=== PATIENT | female | born 1940 | race Caucasian/White ===

== ENCOUNTER → 2016-10-17 | Outpatient (CLI) | payer MEDICARE | END | disposition home or self-care (01) | LOC: PETCFH 09:10 | PROVIDERS: ATTEND Internal Medicine Gastroenterology | DX: K57.32 Diverticulitis of large intestine without perforation or abscess without bleeding (principal); I10 Essential (primary) hypertension; E78.00 Pure hypercholesterolemia, unspecified; E89.41 Symptomatic postprocedural ovarian failure; R52 Pain, unspecified; Z86.010 Personal history of colon polyps; Z68.29 Body mass index [BMI] 29.0-29.9, adult | CPT/HCPCS: 78264; A9541 ==

== ENCOUNTER 2020-02-05 12:34 | Outpatient (CLI) | payer MEDICARE ==
[2020-02-05] MEDS ORDERED: GINKGO BILOBA PO (13:15)
[2020-02-05] MEDS ORDERED: IPRA15SP NS (13:15)
[2020-02-05] MEDS ORDERED: PANT40TA5 PO (13:15)
[2020-02-05] MEDS ORDERED: LOSA100T14 PO (13:15)
[2020-02-05] MEDS ORDERED: [UNRECOGNIZED DRUG - OTHER] PO (13:15)
[2020-02-05] MEDS ORDERED: MULT-658 PO (13:15)
[2020-02-05] MEDS ORDERED: biotin PO (13:15)
[2020-02-05] MEDS ORDERED: co Q10 PO (13:15)
[2020-02-05] MEDS ORDERED: ESTR2TAB PO (13:15)
[2020-02-05] MEDS ORDERED: ATOR40TA78 PO (13:15)
[2020-02-05] MEDS ORDERED: CYAN1TAB29 PO (13:15)
[2020-02-05 13:56] LABS: ALANINE AMINOTRANSFERASE 32 U/L (12-78); ALBUMIN 3.9 g/dL (3.4-5.0); ANION GAP 5 mmol/L (5-15); CALCIUM 9.8 mg/dL (8.5-10.1); CHLORIDE 107 mmol/L (98-107)
[2020-02-05 13:58] LABS: ALKALINE PHOSPHATASE 102 U/L (45-117); BILIRUBIN,TOTAL 0.8 mg/dL (0.2-1.0); TOTAL PROTEIN 7.5 g/dL (6.4-8.2)
== END 2020-02-05 23:59 | disposition home or self-care (01) ==
LOC: STAR 12:34
PROVIDERS: ATTEND Orthopaedic Surgery
DX: Z01.818 Encounter for other preprocedural examination (principal); S46.011A Strain of muscle(s) and tendon(s) of the rotator cuff of right shoulder, initial encounter; X58.XXXA Exposure to other specified factors, initial encounter; Y93.89 Activity, other specified; Y92.89 Other specified places as the place of occurrence of the external cause; Y99.8 Other external cause status
CPT/HCPCS: 36415; 80053; 93005

== ENCOUNTER 2020-02-07 09:29 | Outpatient (CLI) | payer MEDICARE ==
[~2020-02-07 09:29] MED LIST: ATOR40TA78 PO; CYAN1TAB29 PO; ESTR2TAB PO; GINKGO BILOBA PO; IPRA15SP NS; LOSA100T14 PO; MULT-658 PO; PANT40TA5 PO; [UNRECOGNIZED DRUG - OTHER] PO; biotin PO; co Q10 PO
== END 2020-02-07 23:59 | disposition home or self-care (01) ==
LOC: STAR 09:29
PROVIDERS: ATTEND Anesthesiology
DX: Z01.818 Encounter for other preprocedural examination (principal); Z11.59 Encounter for screening for other viral diseases
CPT/HCPCS: 36415; 87635

== ENCOUNTER 2020-02-12 07:47 | Day surgery (SDC) | payer MEDICARE ==
[~2020-02-12] VITALS: Ht 167.6 cm; Wt 71.5 kg
[~2020-02-12 07:47] MED LIST changes: +BUPIVACAINE/PF 0.25% ONE; +EPINEPHRINE 1 MG/ML, 1ML ONE; +FENTANYL PF 100 MCG/2ML ONE; +LIDOCAINE/PF 1%-EPI 1:200K, 30 ML ONE
[2020-02-12] MEDS ORDERED: CHLORHEXIDINE 15 ML UDC MM STA (08:10)
[2020-02-12] MEDS ORDERED: LACTATED RINGERS 1,000 ML IV SCH (08:10)
[2020-02-12] MEDS ORDERED: ACETAMINOPHEN 500 MG TABLET ONE (08:21)
[2020-02-12] MEDS ORDERED: ACETAMINOPHEN 500 MG TABLET PO STA (08:21)
[2020-02-12 08:42] VITALS: BP 175/86
[2020-02-12] MEDS ORDERED: NEOSTIGMINE 1 MG/ML, 10ML ONE (10:19)
[2020-02-12] MEDS ORDERED: DEXAMETHASONE 4 MG/ML, 1ML ONE (10:19)
[2020-02-12] MEDS ORDERED: ONDANSETRON 2MG/ML, 2ML ONE (10:19)
[2020-02-12] MEDS ORDERED: PROPOFOL 10 MG/ML, 20ML ONE (10:19)
[2020-02-12] MEDS ORDERED: ROCURONIUM 10MG/ML,5ML ONE (10:19)
[2020-02-12] MEDS ORDERED: GLYCOPYRROLATE 0.2MG/1ML, 5ML ONE (10:19)
[2020-02-12] MEDS ORDERED: SUCCINYLCHOLINE 20 MG/ML, 10ML ONE (10:19)
[2020-02-12] MEDS ORDERED: CEFAZOLIN 1,000 MG ONE (10:19)
[2020-02-12] MEDS ORDERED: ONDANSETRON 2MG/ML, 2ML IVPush PRN (10:30)
[2020-02-12] MEDS ORDERED: PROMETHAZINE 25 MG/ML, 1ML IVPush PRN (10:30)
[2020-02-12] MEDS ORDERED: OXYcodone 5 MG/5 ML ORAL.SOL UDC PO PRN (10:30)
[2020-02-12] MEDS ORDERED: HYDROmorphone 1 MG/ML, 1ML INJ IVPush PRN (10:30)
[2020-02-12] MEDS ORDERED: hydrALAzine 20 MG/ML, 1ML IV PRN (10:30)
[2020-02-12] MEDS ORDERED: FENTANYL PF 100 MCG/2ML IV PRN (10:30)
[2020-02-12] MEDS ORDERED: PROMETHAZINE 25 MG SUPP PR PRN (10:30)
[2020-02-12] MEDS ORDERED: LABETALOL 5MG/ML, 20ML IV PRN (10:30)
[2020-02-12] MEDS ORDERED: hydrALAzine 20 MG/ML, 1ML ONE (11:26)
== END 2020-02-12 13:10 | disposition home or self-care (01) ==
LOC: OUT 07:47
PROVIDERS: ATTEND Orthopaedic Surgery
DX: S46.011A Strain of muscle(s) and tendon(s) of the rotator cuff of right shoulder, initial encounter (principal); G89.18 Other acute postprocedural pain; S46.111A Strain of muscle, fascia and tendon of long head of biceps, right arm, initial encounter; S43.431A Superior glenoid labrum lesion of right shoulder, initial encounter; M75.41 Impingement syndrome of right shoulder; I10 Essential (primary) hypertension; M19.90 Unspecified osteoarthritis, unspecified site; Z79.1 Long term (current) use of non-steroidal anti-inflammatories (NSAID); Z79.891 Long term (current) use of opiate analgesic; Z79.899 Other long term (current) drug therapy; Z82.61 Family history of arthritis; W01.0XXA Fall on same level from slipping, tripping and stumbling without subsequent striking against object, initial encounter; Y93.89 Activity, other specified; Y92.89 Other specified places as the place of occurrence of the external cause; Y99.8 Other external cause status
CPT/HCPCS: 29823; 29826; 29827; 64415; C1713; J0171; J0330; J0360; J0690; J1100; J2405; J2704; J2710; J3010; J3490; J7120

== ENCOUNTER 2020-09-02 10:37 | Day surgery (SDC) | payer MEDICARE ==
[2020-08-31 13:45] LABS: ALANINE AMINOTRANSFERASE 21 U/L (12-78); ALBUMIN 3.7 g/dL (3.4-5.0); ANION GAP 4 mmol/L (5-15); CALCIUM 10.1 mg/dL (8.5-10.1); CHLORIDE 109 mmol/L (98-107)
[2020-08-31 13:54] LABS: ALKALINE PHOSPHATASE 96 U/L (45-117); BILIRUBIN,TOTAL 0.4 mg/dL (0.2-1.0); TOTAL PROTEIN 7.2 g/dL (6.4-8.2)
[~2020-09-02] VITALS: Ht 167.6 cm; Wt 74.0 kg
[~2020-09-02 10:37] MED LIST changes: +AMLO-150 PO; +CHOL10003 PO; -FENTANYL PF 100 MCG/2ML ONE; +FISH1CAP PO; -LIDOCAINE/PF 1%-EPI 1:200K, 30 ML ONE; +MAGNESIUM PO; -PANT40TA5 PO; +PANT40TA6 PO; +TEMA15CA PO
[2020-09-02 11:21] VITALS: BP 165/79
[2020-09-02] MEDS ORDERED: ACETAMINOPHEN 500 MG TABLET PO ONE (11:30)
[2020-09-02] MEDS ORDERED: CHLORHEXIDINE 15 ML UDC MM ONE (11:30)
[2020-09-02] MEDS ORDERED: LACTATED RINGERS 1,000 ML IV SCH (11:30)
[2020-09-02] MEDS ORDERED: FENTANYL PF 100 MCG/2ML ONE (12:21)
[2020-09-02] MEDS ORDERED: LABETALOL 5MG/ML, 20ML IV PRN (12:30)
[2020-09-02] MEDS ORDERED: OXYcodone 5 MG/5 ML ORAL.SOL UDC PO PRN (12:30)
[2020-09-02] MEDS ORDERED: PROMETHAZINE 25 MG/ML, 1ML IVPush PRN (12:30)
[2020-09-02] MEDS ORDERED: ONDANSETRON 2MG/ML, 2ML IVPush PRN (12:30)
[2020-09-02] MEDS ORDERED: EPHEDRINE 50 MG/ML, 1ML IVPush PRN (12:30)
[2020-09-02] MEDS ORDERED: hydrALAzine 20 MG/ML, 1ML IV PRN (12:30)
[2020-09-02] MEDS ORDERED: FENTANYL PF 100 MCG/2ML IV PRN (12:30)
[2020-09-02] MEDS ORDERED: HYDROmorphone 1 MG/ML, 1ML INJ IVPush PRN (12:30)
[2020-09-02] MEDS ORDERED: LIDOCAINE-MPF 2% ,5ML ONE (12:53)
[2020-09-02] MEDS ORDERED: KETOROLAC 30 MG/1 ML ONE (12:53)
[2020-09-02] MEDS ORDERED: EPHEDRINE 50 MG/ML, 1ML ONE (13:05)
[2020-09-02] MEDS ORDERED: ONDANSETRON 2MG/ML, 2ML ONE (14:51)
[2020-09-02] MEDS ORDERED: DEXAMETHASONE 4 MG/ML, 1ML ONE (14:51)
[2020-09-02] MEDS ORDERED: PROPOFOL 10 MG/ML, 20ML ONE (14:51)
[2020-09-02] MEDS ORDERED: SUCCINYLCHOLINE 20 MG/ML, 10ML ONE (14:51)
[2020-09-02] MEDS ORDERED: CEFAZOLIN 1,000 MG ONE (14:51)
== END 2020-09-02 16:45 | disposition home or self-care (01) ==
LOC: OUT 10:37
PROVIDERS: ATTEND Orthopaedic Surgery
DX: S46.011A Strain of muscle(s) and tendon(s) of the rotator cuff of right shoulder, initial encounter (principal); S43.431A Superior glenoid labrum lesion of right shoulder, initial encounter; M94.211 Chondromalacia, right shoulder; M65.811 Other synovitis and tenosynovitis, right shoulder; G89.18 Other acute postprocedural pain; I10 Essential (primary) hypertension; E78.5 Hyperlipidemia, unspecified; M19.90 Unspecified osteoarthritis, unspecified site; Z20.822 Contact with and (suspected) exposure to COVID-19; Z79.899 Other long term (current) drug therapy; Z79.1 Long term (current) use of non-steroidal anti-inflammatories (NSAID); Z79.891 Long term (current) use of opiate analgesic; Z82.61 Family history of arthritis; X58.XXXA Exposure to other specified factors, initial encounter; Y93.89 Activity, other specified; Y92.89 Other specified places as the place of occurrence of the external cause; Y99.8 Other external cause status
CPT/HCPCS: 15271; 29823; 29827; 36415; 64415; 80053; 93005; C1713; J0171; J0330; J0690; J1100; J1885; J2405; J2704; J3010; J7120; Q4107; U0003